=== PATIENT | female | born 1960 | race Caucasian/White ===

== ENCOUNTER 2019-03-28 07:27 | Day surgery (SDC) | payer MEDICARE ==
[2019-03-27 15:08] LABS: Absolute Lymphocytes (CBC) 2.4 K/uL (0.7-4.9); Basophils % 1.1 % (0-1.3); Hematocrit 41.1 % (36.0-45.0); Lymphocytes % 36.6 % (15.3-44.8); MPV 9.2 fL (7.6-11.3); RBC Red Blood Cell Count 4.24 M/uL (3.86-4.86)
--- NOTE | 2019-03-27 15:22 | RAD REPORT ---
EXAM DESCRIPTION: RAD - Chest Pa And Lat (2 Views) - 03/27/2019 3:04 pm CLINICAL HISTORY: preop, pending cholecystectomy COMPARISON: January 04 TECHNIQUE: PA and lateral views of the chest were obtained. FINDINGS: The lungs are clear. Interstitial pattern matches comparison. Heart size is normal and ce ntral vasculature is within normal limits. No pleural effusion or pneumothorax seen. No acute bony finding noted. No aortic abnormality. IMPRESSION: No acute cardiopulmonary process. No significant interval change.
[2019-03-27 15:30] LABS: Potassium 4.5 mmol/L (3.5-5.1)
[2019-03-27 15:45] LABS: Bilirubin Direct 0.2 mg/dL (0-0.2); Bilirubin Total 0.5 mg/dL (0.2-1.0); Protein, Total 7.6 g/dL (6.4-8.2)
[2019-03-28] MEDS ORDERED: SUCCINYLCHOLINE 20 MG/ML (10 ML) IV ONE (07:30)
[2019-03-28] MEDS ORDERED: Ringers Lactate 1,000 ML IV ONE ×2 (07:34→08:58)
[2019-03-28] MEDS ORDERED: CEFOXITIN/SWI 1gm 1 GM/10 ML SYR ONE (07:41)
[2019-03-28] MEDS ORDERED: PROPOFOL 200 MG/20 ML VIAL IV ONE (07:45)
[2019-03-28] MEDS ORDERED: FENTANYL CITR 250 MCG/5 ML ONE (07:46)
[2019-03-28] MEDS ORDERED: MIDAZOLAM HCL 2 MG/2 ML INJ ONE (07:46)
[2019-03-28] MEDS ORDERED: LIDOCAINE 2% MPF 5 ML VIAL ONE (07:46)
[2019-03-28] MEDS ORDERED: GLYCOPYRROLATE 0.2 MG/ML SYR ONE (07:46)
[2019-03-28] MEDS ORDERED: ONDANSETRON 4 MG/2 ML VIAL ONE (07:49)
[2019-03-28] MEDS ORDERED: ROCURONIUM 50 MG/5 ML VIAL IV ONE (07:51)
--- NOTE | 2019-03-28 09:10 | P.BOP ---
Preoperative diagnosis: symptomatic cholelithiasis, RUQ abd pain Postoperative diagnosis: same Primary procedure: Laparoscopic cholecystectomy [employer] Executive Director: ROCIO FRAIRE (HR COORDINATOR) Estimated blood loss: <10cc Specimen: gb Findings: same Anesthesia: General Complications: None Transferred to: Recovery Room Condition: Good
[2019-03-28 09:56] VITALS: TEMP 97.6; O2SAT 100
[2019-03-28] MEDS ORDERED: CODEINE 30MG/APAP 300MG TAB ONE (10:07)
[2019-03-28 10:30] VITALS: BP 111/75
--- NOTE | 2019-03-28 20:44 | OP ---
Date of Procedure: 03/28/2019 Surgeon: Jacky Sullivan MD Warehouse Distribution Specialist: Asha Tony. Preoperative Diagnoses: Symptomatic cholelithiasis, right upper quadrant abdominal pain. Postoperative Diagnoses: Symptomatic cholelithiasis, right upper quadrant abdominal pain. Procedure: Laparoscopic cholecystectomy. Estimated Blood Loss: Less than 10 mL. Specimen: Gallbladder. Anesthesia: General plus local. Indications: This is the case of a 58-year-old patient, who comes to us with the above diagnosis. F pamela explained the benefits, alternatives, and risks of laparoscopic, possible open cholecystectomy, which include, but not limited to infection, bleeding, damage to adjacent structures, anesthesia comp lications, choledocholithiasis, bile leak, pancreatitis, SC, and even . She also understand thi s may not relieve any symptoms. She might need more than one surgical intervention. She understood, signed the consent. Description Of Procedure: Patient was brought to the operating room, placed in supine position. Ane sthesia was given without complication. Abdominal area was prepped and draped in usual sterile fashi on. Marcaine 0.5% was injected for local anesthetic, followed by sharp incision of the skin in the i nfraumbilical region. Incision was carried down to fascia, which was opened under direct vision. Pe ritoneum was encountered, opened under direct vision. Vicryl #1 placed inside the fascia. Telma tr ocar was carefully introduced and no bleeding was obtained. I placed 3 more trocars, 5 mm each one o f them, in the right upper quadrant under direct visualization. The gallbladder looks distended full of tiny stones like sludge, very thick viscous. We put a needle trying to decompress the gallbladde r, although we got some bile out, it was mainly a thick thick sludge that does not even go through th e needle. So we put a grasper in that area, removed the needle under direct visualization, put anoth er grasper in the fundus of the gallbladder, retracted the gallbladder in the inferolateral fashion e xposing the triangle of Calot, obtaining critical view of safety. Cystic duct and cystic artery were clearly isolated, freed circumferentially. Connection between those and the gallbladder were clearl y identified. I proceeded to ligate those by using at least 3 clips proximal, 1 clip distal, and lig ation in the middle. Same was done with the cystic artery. No bile leak. No bleeding. The gallbla dder was removed from the liver using Bovie cauterizer and removed from abdominal cavity using EndoCa tch through the umbilical incision. The area was inspected once again. No bile leak. No bleeding. At that moment, I proceeded to remove the trocars under direct vision, deflated the pneumoperitoneum , closed the fascia with #1 Vicryl. Irrigated subcu tissue, closed that with 3-0 chromic and skin wi th skyler. Sponge count and instrument counts were correct. Patient tolerated the procedure well. Patient was sent to recovery in stable condition. RITIKA/JOSE ROBERTO Voice ID: [id number] Report ID: [id number]
--- NOTE | 2019-03-28 20:50 | DS ---
Date of Discharge: 03/28/2019 Diagnoses: Symptomatic cholelithiasis, right upper quadrant abdominal pain. Procedure: Laparoscopic cholecystectomy. Disposition: Home. Activity: As tolerated. No heavy lifting. Followup: Follow up in my office in 1 week. Call for appointment [phone]. Keep area dry for 48 ho urs, then may shower. Keep Steri-Strips intact. Medications: Include Tylenol No. 3 q.4 hours p.r.n. pain, Bactrim DS p.o. b.i.d. RITIKA/JOSE ROBERTO Voice ID: [id number] Report ID: [id number]
== END 2019-03-28 10:45 | disposition home or self-care (01) ==
LOC: OR 07:27
PROVIDERS: ATTEND Surgery
PROC: 0FT44ZZ Resection of Gallbladder, Percutaneous Endoscopic Approach (ICD-10-PCS; principal; 2019-03-28 08:30)
DX: K80.10 Calculus of gallbladder with chronic cholecystitis without obstruction (principal); K21.9 Gastro-esophageal reflux disease without esophagitis; F31.9 Bipolar disorder, unspecified; Z79.82 Long term (current) use of aspirin; Z88.8 Allergy status to other drugs, medicaments and biological substances; Z80.1 Family history of malignant neoplasm of trachea, bronchus and lung; Z82.62 Family history of osteoporosis
CPT/HCPCS: 85025; 80048; 36415; 82150; 80076; 80164; 88304; 83690; 71046; 47562; J2704; J0330; J2250; J3010; J7120 ×2; J2405

== ENCOUNTER 2020-03-22 09:48 | Emergency (ER) | payer MEDICARE ==
--- OUTSIDE RECORDS SUMMARY | 2020-03-22 09:49 | XMS REPORT | Continuity of Care Document ---
:1960 Author Organization [facility] t Address [address] [place] [address] Care Team Providers Name Role Phone Doctor Unassigned, Name Attending Clinician Unavailable Becky Guo MD Attending Clinician Problems This patient has no known problems. Allergies, Adverse Reactions, Alerts This patient has no known allergies or adverse reactions. Medications This patient has no known medications. Procedures This patient has no known procedures. Encounters Start End Encounter Admission Attending Care Care Encounter Source Date/Time Date/Time Type Type Clinicians Facility Department ID 2020-02-25 2020-02-25 Orders Doctor SHARIF [id number] 00:00:00 00:00:00 Only Unassigned, SUSANA [id number] [facility] [id number] 009 2020-01-16 2020-01-16 Orders Doctor SHARIF [id number] 00:00:00 00:00:00 Only UnassignedSUSANA [id number] [facility] [id number] 009 2019-11-12 2019-11-12 Orders Doctor SHARIF [id number] 00:00:00 00:00:00 Only Unassigned, SUSANA [id number] [facility] [id number] 009 2019-11-09 2019-11-09 Telephone PEBBLES Gou [id number] 00:00:00 00:00:00 Matias Eduardo [id number] [facility] [id number] [facility] [id number] [address] [place] 2019-10-29 2019-10-29 Orders Doctor CHANTE [id number] 00:00:00 00:00:00 Only Unassigned, SUSANA [id number] [facility] [id number] 009 2019-10-12 2019-10-12 Orders Doctor CHANTE [id number] 00:00:00 00:00:00 Only Unassigned, SUSANA [id number] [facility] [id number] 009 2019-10-04 2019-10-04 Office PEBBLES Guo [id number] 12:59:10 13:14:10 Visit Matias Eduardo [id number] [facility] [id number] Specialti [id number] [address] [place] Results This patient has no known results.
--- OUTSIDE RECORDS SUMMARY | 2020-03-22 09:49 | XMS REPORT | Summary of Care ---
:1960 Author Organization [facility] - Health Address [address] [place] [address] Care Team Providers Name Role Phone Pcp, Patient Does Not Have A Primary Care Provider +[phone] 0-0000 Encounter Details Date Type Department Care Team Description 01/16/2020 Orders Only [facility] Doctor Unassigned, No [address] [facility] [place] [address] [address] [place] [address] Allergies Active Allergy Reactions Severity Noted Date Comments Haloperidol Lactate Anaphylaxis 10/04/2019 documented as of this encounter (statuses as of 01/22/2020) Medications No known medicationsdocumented as of this encounter (statuses as of 01/22/2020) Active Problems Not on filedocumented as of this encounter (statuses as of 01/22/2020) Social History Tobacco Use Types Packs/Day Years Used Date Never Smoker Smokeless Tobacco: Never Used Sex Assigned at Date Recorded Not on file documented as of this encounter Last Filed Vital Signs Not on filedocumented in this encounter Plan of Treatment Health Maintenance Due Date Last Done Comments HEPATITIS C (HCV) SCREEN 1960 Depression Screening 1970 DTaP,Tdap,and Td Vaccines ( - 1977 Tdap) Breast Cancer Screening 1998 (MAMMOGRAM) PAP SMEAR 12/29/2007 12/28/2004 COLON CANCER SCREENING ANNUAL 2008 FIT/FOBT COLON CANCER SCREENING FIT DNA 2008 EVERY 3 YEARS COLON CANCER SCREENING 2008 SIGMOIDOSCOPY EVERY 5 YEARS COLONOSCOPY 2008 Colorectal Cancer Screening 2008 Zoster Recombinant Vaccine 2008 (SHINGRIX) (1 of 2) INFLUENZA VACCINE (#1) 2020 PNEUMOCOCCAL 0-64 YEARS COMBINED Aged Out No longer eligible based on SERIES patient's age to complete this topic documented as of this encounter Procedures Procedure Name Priority Date/Time Associated Diagnosis Comme nts REFERRAL- Routine 01/16/2020 12:01 AM CDT REQUEST/RESPONSE documented in this encounter Results Not on filedocumented in this encounter Insurance Payer Benefit Plan / Subscriber ID Effective Phone Address T ype Group Dates [facility] [id number] 2019-Sepideh [employer]rish [employer] - MEDICARE nt O MANAGED MEDICARE ADVANTAGE documented as of this encounter
--- OUTSIDE RECORDS SUMMARY | 2020-03-22 09:49 | XMS REPORT | Summary of Care ---
:1960 Author Organization [facility] - Health Address [address] [place] [address] Care Team Providers Name Role Phone Pcp, Patient Does Not Have A Primary Care Provider +[phone] 0-0000 Encounter Details Date Type Department Care Team Description 02/25/2020 Orders Only [facility] Doctor Unassigned, No [address] [facility] [place] [address] [address] [place] [address] Allergies Active Allergy Reactions Severity Noted Date Comments Haloperidol Lactate Anaphylaxis 10/04/2019 documented as of this encounter (statuses as of 03/06/2020) Medications No known medicationsdocumented as of this encounter (statuses as of 03/06/2020) Active Problems Not on filedocumented as of this encounter (statuses as of 03/06/2020) Social History Tobacco Use Types Packs/Day Years [...] Date/Time Associated Diagnosis Comme nts REFERRAL- Routine 02/25/2020 12:01 AM CDT REQUEST/RESPONSE documented in this encounter Results Not on filedocumented in this encounter Insurance Payer Benefit Plan / Subscriber ID Effective Phone Address T ype Group Dates [facility] [id number] 2019-Sepideh Parrish [employer] - MEDICARE nt O MANAGED MEDICARE ADVANTAGE documented as of this encounter
--- NOTE | 2020-03-22 10:57 | RAD REPORT ---
EXAM DESCRIPTION: RAD - Lumbar Spine 3 Views - 03/22/2020 10:40 am CLINICAL HISTORY: Back pain FINDINGS: Khbq-rk-bjubvcgh scoliosis Marked spondylosis L2-3. Osteoporosis. No fracture or dislocation
--- NOTE | 2020-03-22 10:58 | RAD REPORT ---
EXAM DESCRIPTION: RAD - Pelvis - 03/22/2020 10:41 am CLINICAL HISTORY: Pelvic pain FINDINGS: No fracture or dislocation is seen. Moderate osteoarthritis involves the left hip consisting of joint space narrowing and subchondral scl erosis. Mild to moderate osteoarthritis involves the right hip Bones are osteoporotic
[2020-03-22] MEDS ORDERED: TRAMADOL HCL 50 MG TAB ONE (10:59)
--- NOTE | 2020-03-22 10:59 | RAD REPORT ---
EXAM DESCRIPTION: RAD - Femur Left - 03/22/2020 10:41 am CLINICAL HISTORY: Left leg pain FINDINGS: The bones are osteoporotic. No fracture is seen. No bony lesion is displayed.
[2020-03-22] MEDS ORDERED: HYDROCODONE/APAP 5/325 MG TAB ONE (11:23)
--- NOTE | 2020-03-22 11:29 | ER ---
Nurse's Notes [facility] Name: Skye Coe Age: 59 yrs Sex: Female : 1960 Arrival Date: 03/22/2020 Time: 09:50 Bed 8 Private MD: Diagnosis: Sciatica, left side Presentation: 03/22 10:06 Chief complaint: Patient states: left hip pain that radiates down to the left ankle x 4 sv weeks. Has seen her PCP and given a steroid pack but has not improved. Coronavirus screen: Client denies travel out of the [place] in the last 14 days. At this time, the client does not indicate any symptoms associated with coronavirus-19. Ebola Screen: No symptoms or risks identified at this time. Initial Sepsis Screen: Does the patient meet any 2 criteria? HR > 90 bpm. No. Patient's initial sepsis screen is negative. Does the patient have a suspected source of infection? No. Patient's initial sepsis screen is negative. Risk Assessment: Do you want to hurt yourself or someone else? Patient reports no desire to harm self or others. Onset of symptoms was January 2020. 10:06 Method Of Arrival: Ambulatory sv 10:06 Acuity: JAIME 4 sv Historical: - Allergies: 10:07 Haldol; sv - PMHx: 10:07 Bipolar disorder; sv - PSHx: 10:07 Appendectomy; right foot; sv - Immunization history:: Flu vaccine is up to date. - Social history:: Smoking status: Patient denies any tobacco usage or history of. Screenin:00 Abuse screen: Denies threats or abuse. Denies injuries from another. Nutritional zb screening: No deficits noted. Tuberculosis screening: No symptoms or risk factors identified. Fall Risk None identified. No fall in past 12 months (0 pts). Secondary diagnosis (15 points) IV access (20 points). Ambulatory Aid- Crutches/Cane/Walker (15 pts). Gait- Normal/Bed Rest/Wheelchair (0 pts) Mental Status- Oriented to own ability (0 pts). Total Sher Fall Scale indicates Low Risk Score (25-44 pts). Fall prevention measures have been instituted. Side Rails Up X 2 Frequent Obs/Assesments occuring Family Present and informed to notify staff if they need to leave bedside As available Patient and Family Educated on Fall Prevention Program and strategies. Assessment: 10:30 General: Appears in no apparent distress. uncomfortable, Behavior is calm, cooperative, zb appropriate for age. Pain: Complains of pain in left hip. Neuro: Level of Consciousness is awake, alert, obeys commands, Oriented to person, place, time, situation. Cardiovascular: Capillary refill < 3 seconds in bilateral fingers. Respiratory: Airway is patent Respiratory effort is even, unlabored. GI: No signs and/or symptoms were reported involving the gastrointestinal system. : No signs and/or symptoms were reported regarding the genitourinary system. EENT: No signs and/or symptoms were reported regarding the EENT system. Derm: Skin is intact, is healthy with good turgor, Skin is pink, warm \\T\\ dry. Skin temperature is warm. Musculoskeletal: Circulation, motion, and sensation intact. 11:40 Reassessment: Patient appears in no apparent distress at this time. Patient and/or sv family updated on plan of care and expected duration. Pain level reassessed. Patient is alert, oriented x 3, equal unlabored respirations, skin warm/dry/pink. Vital Signs: 10:06 BP 147 / 90; Pulse 95; Resp 16; Temp 97.4; Pulse Ox 98% ; Weight 67.13 kg; Height 5 ft. sv 2 in. (157.48 cm); Pain 7/10; 11:00 BP 140 / 86; Pulse 93; Resp 18; Pulse Ox 99% on R/A; zb 10:06 Body Mass Index 27.07 (67.13 kg, 157.48 cm) sv ED Course: 09:50 Patient arrived in ED. ds1 09:55 Niko Vallejo PA is PHCP. cp 09:55 Charles Hodges MD is Attending Physician. cp 10:02 Shira Everett RN is Primary Nurse. zb 10:07 Triage completed. sv 10:07 Arm band placed on. sv 10:41 XRAY Pelvis In Process Unspecified. EDMS 10:41 XRAY Femur LEFT In Process Unspecified. EDMS 10:41 XRAY Lumbar Spine (3 Views) In Process Unspecified. EDMS 11:00 Patient has correct armband on for positive identification. Bed in low position. Call zb light in reach. Side rails up X 1. patient monitor on. Pulse ox on. NIBP on. 11:13 US Extremity Venous Unilateral Ltd In Process Unspecified. EDMS 11:40 No provider procedures requiring assistance completed. Patient did not have IV access sv during this emergency room visit. Administered Medications: 10:59 Not Given (Patient Refused; pt stated medication "does funny things to her"): traMADol zb 50 mg PO once; RASS on ADMIN: Combtv4, Very Agttd3, Agttd2, Rstlss1, AlertClm0, Drwsy-1, Lt Sdtn-2, Mod Sdtn-3, Dp Sdtn-4, UnArsble-5 11:20 Drug: HYDROcodone-acetaminophen 5 mg-325 mg 1 tabs Route: PO; zb 11:41 Follow up: Response: No adverse reaction; Pain is decreased zb 11:29 Not Given (no feeding tube): HYDROcodone-acetaminophen 5 mg-325 mg 1 tabs Feeding Tube zb once; RASS on ADMIN: Combtv4, Very Agttd3, Agttd2, Rstlss1, AlertClm0, Drwsy-1, Lt Sdtn-2, Mod Sdtn-3, Dp Sdtn-4, UnArsble-5 11:30 Drug: Ibuprofen 800 mg Route: PO; zb 11:40 Follow up: Response: No adverse reaction zb Outcome: 11:28 Discharge ordered by MD. cp 11:40 Discharged to home ambulatory, with her cane sv 11:40 Condition: stable 11:40 Discharge instructions given to patient, Instructed on discharge instructions, follow up and referral plans. no drinking with medication, no driving heavy equipment, medication usage, sciatica stretches Demonstrated understanding of instructions, follow-up care, medications, Prescriptions given X 2. 11:41 Patient left the ED. sv Signatures: Dispatcher [employer] EDJolly Diaz RN RN sv Sanford, Demi ds1 Niko Vallejo PA PA cp Brown, Zipporah, RN RN zb Corrections: (The following items were deleted from the chart) 11:28 11:27 HYDROcodone-acetaminophen 5 mg-325 mg 1 tabs Feeding Tube zb zb
--- NOTE | 2020-03-22 11:29 | RAD REPORT ---
[facility] 11:13 am CLINICAL HISTORY: left leg pain COMPARISON: None. FINDINGS: Left common femoral, superficial femoral, popliteal and posterior tibial veins are compre ssible and demonstrate augmentation. Doppler demonstrates good flow. IMPRESSION: No evidence of deep venous thrombosis involving the left lower extremity.
--- NOTE | 2020-03-22 11:29 | EDPHYS ---
Physician Documentation [facility] Name: Skye Coe Age: 59 yrs Sex: Female : 1960 Arrival Date: 03/22/2020 Time: 09:50 Bed 8 Private MD: ED Physician Charles Hodges HPI: 03/22 10:12 This 59 yrs old Female presents to ER via Ambulatory with complaints of Hip cp Pain, Leg Pain. 10:12 The patient or guardian reports pain. sustained from unknown reason, There is no cp obvious deformity, The patient is able to ambulate with assistance. The patient is able to bear their full body weight. The complaints affect the left hip and left leg. Onset: The symptoms/episode began/occurred 4 week(s) ago. Associated signs and symptoms: Pertinent positives: low back pain. 10:12 Patient reports seeing PCP this week and is currently taking prescribed steroid. cp Historical: - Allergies: 10:07 Haldol; sv - PMHx: 10:07 Bipolar disorder; sv - PSHx: 10:07 Appendectomy; right foot; sv - Immunization history:: Flu vaccine is up to date. - Social history:: Smoking status: Patient denies any tobacco usage or history of. ROS: 10:20 Constitutional: Negative for body aches, chills, fever, poor PO intake. cp 10:20 Eyes: Negative for injury, pain, redness, and discharge. cp 10:20 Cardiovascular: Negative for chest pain, edema, palpitations. 10:20 Respiratory: Negative for cough, shortness of breath, wheezing. 10:20 Abdomen/GI: Negative for abdominal pain, constipation, bowel incontinence. 10:20 Back: Positive for pain at rest, pain with movement, of the lumbar area and left low back, Negative for injury or acute deformity, decreased range of motion. 10:20 : Negative for urinary symptoms, difficulty urinating, bladder incontinence. 10:20 MS/extremity: Positive for pain, of the left leg, Negative for decreased range of motion, deformity, paresthesias. 10:20 Neuro: Negative for altered mental status, headache, numbness, tingling, weakness. 10:20 All other systems are negative. Exam: 10:25 Constitutional: The patient appears in no acute distress, alert, awake, non-toxic, well cp developed, well nourished. 10:25 Head/Face: Normocephalic, atraumatic. cp 10:25 Chest/axilla: Inspection: normal. 10:25 Cardiovascular: Rate: normal, Rhythm: regular. 10:25 Respiratory: the patient does not display signs of respiratory distress, Respirations: normal, no use of accessory muscles, no retractions. 10:25 Abdomen/GI: Inspection: abdomen appears normal, Palpation: abdomen is soft and non-tender, in all quadrants, voluntary guarding, is not appreciated, involuntary guarding, is not appreciated. 10:25 Back: pain, that is moderate, of the lumbar area and left low back, CVA tenderness, is absent. 10:25 Musculoskeletal/extremity: Extremities: grossly normal except: noted in the left upper thigh and posterior left upper leg: pain, tenderness, Perfusion: the extremity is normally perfused throughout, Sensation intact. 10:25 Skin: no rash present. 10:25 Neuro: Orientation: to person, place \\T\\ time. Mentation: is normal, Motor: moves all fours, strength is normal. Vital Signs: 10:06 BP 147 / 90; Pulse 95; Resp 16; Temp 97.4; Pulse Ox 98% ; Weight 67.13 kg; Height 5 ft. sv 2 in. (157.48 cm); Pain 7/10; 11:00 BP 140 / 86; Pulse 93; Resp 18; Pulse Ox 99% on R/A; zb 10:06 Body Mass Index 27.07 (67.13 kg, 157.48 cm) sv MDM: 10:05 Patient medically screened. cp 10:30 Differential diagnosis: intertrochanteric fracture, femoral neck fracture, femoral cp shaft fracture, bursitis, sciatica. 11:27 Data reviewed: vital signs, nurses notes, radiologic studies, plain films. cp 11:27 Counseling: I had a detailed discussion with the patient and/or guardian regarding: the cp historical points, exam findings, and any diagnostic results supporting the discharge/admit diagnosis, radiology results, the need for outpatient follow up, a family practitioner, to return to the emergency department if symptoms worsen or persist or if there are any questions or concerns that arise at home. Response to treatment: the patient's symptoms have mildly improved after treatment, and as a result, I will discharge patient. 03/22 10:07 Order name: XRAY Pelvis cp 03/22 10:07 Order name: XRAY Femur LEFT cp 03/22 10:07 Order name: XRAY Lumbar Spine (3 Views) cp 03/22 10:07 Order name: US Extremity Venous Unilateral Ltd cp Administered Medications: 10:59 Not Given (Patient Refused; pt stated medication "does funny things to her"): traMADol zb 50 mg PO once; RASS on ADMIN: Combtv4, Very Agttd3, Agttd2, Rstlss1, AlertClm0, Drwsy-1, Lt Sdtn-2, Mod Sdtn-3, Dp Sdtn-4, UnArsble-5 11:20 Drug: HYDROcodone-acetaminophen 5 mg-325 mg 1 tabs Route: PO; zb 11:41 Follow up: Response: No adverse reaction; Pain is decreased zb 11:29 Not Given (no feeding tube): HYDROcodone-acetaminophen 5 mg-325 mg 1 tabs Feeding Tube zb once; RASS on ADMIN: Combtv4, Very Agttd3, Agttd2, Rstlss1, AlertClm0, Drwsy-1, Lt Sdtn-2, Mod Sdtn-3, Dp Sdtn-4, UnArsble-5 11:30 Drug: Ibuprofen 800 mg Route: PO; zb 11:40 Follow up: Response: No adverse reaction zb Disposition: 03/23 06:56 Co-signature as Attending Physician, Charles Hodges MD I agree with the assessment and kdr plan of care. Disposition: 03/22/20 11:28 Discharged to Home. Impression: Sciatica, left side. - Condition is Stable. - Discharge Instructions: Sciatica, Back Exercises. - Prescriptions for Cyclobenzaprine 10 mg Oral Tablet - take 1 tablet by ORAL route every 8 hours As needed; 20 tablet. Lidoderm 5 % Topical adhesive patch,medicated - apply 1 patch by TRANSDERMAL route once daily; 1 box. - Medication Reconciliation Form, Thank You Letter, Antibiotic Education, Prescription Opioid Use form. - Follow up: Private Physician; When: 2 - 3 days; Reason: Recheck today's complaints. - Problem is an ongoing problem. - Symptoms have improved. Signatures: Dispatcher [facility] Jolly Meyers RN RN sv Charles Hodges MD MD kdr Page, Corey, PA PA cp Brown, Zipporah RN RN zb Corrections: (The following items were deleted from the chart) 03/22 11:41 11:28 03/22/2020 11:28 Discharged to Home. Impression: Sciatica, left side. Condition sv is Stable. Forms are Medication Reconciliation Form, Thank You Letter, Antibiotic Education, Prescription Opioid Use. Follow up: Private Physician; When: 2 - 3 days; Reason: Recheck today's complaints. Problem is an ongoing problem. Symptoms have improved. cp 03/23 10:16 03/22 10:12 Onset: The symptoms/episode began/occurred 2 week(s) ago, cp cp
[2020-03-22 17:08] VITALS: BP 147/90; TEMP 97.4; O2SAT 98
== END 2020-03-22 11:41 | disposition home or self-care (01) ==
LOC: ER 09:48
DX: M54.32 Sciatica, left side (principal); F31.9 Bipolar disorder, unspecified; Z88.5 Allergy status to narcotic agent
CPT/HCPCS: 72100; 72170; 93971; 99284

== ENCOUNTER 2021-09-25 17:57 | Emergency (ER) | payer OTHER ==
--- OUTSIDE RECORDS SUMMARY | 2021-09-25 17:59 | XMS REPORT | Continuity of Care Document ---
:1960 Author Organization [facility] t Address [address] [place] [address] Care Team Providers Name Role Phone Jayne Jerome Primary Care Physician Doctor Unassigned, Name Attending Clinician Unavailable Armando HAM L Attending Clinician Becky GUO Attending Clinician Unavailable DESAI_AZAR Attending Clinician Unavailable JENNIFER_AZAR Admitting Clinician Unavailable Payers Payer Name Policy Type Policy Number Effective Date Expiration Date S ource Problems Condition Condition Condition Status Onset Resolution Last Treating Co mments Source Name Details Category Date Date Treatment Clinician Date No known No known Disease Unive rs active active ity of problems problems [facility] Allergies, Adverse Reactions, Alerts Allergy Allergy Status Severity Reaction(s) Onset Inactive Treating Comm ents Source Name Type Date Date Clinician HALOPERI DRUG Active Anaphylaxis 2019-0 Uni vers DOL INGREDI 6-04 ity of LACTATE 00:00: [place] 00 [facility] Haloperi Drug Active Anaphylaxis 2019-0 Uni vers dol Allergy 6-04 ity of Lactate 00:00: [place] 00 Medical [place] Social History Social Habit Start Date Stop Date Quantity Comments Source Exposure to 2021-08-30 2021-09-09 Not sure [facility] SARS-CoV-2 (event) 00:00:00 12:02:00 Medica l Branch Tobacco use and 2019-10-04 2019-10-04 Never used [facility] exposure 00:00:00 00:00:00 Medical Branch Sex Ass[birth year] At [birth year] [facility] y of [place] 00:00:00 00:00:00 Medical Branch Smoking Status Start Date Stop Date Source Never smoker [facility] [place] Medications Ordered Filled Start Stop Current Ordering Indication Dosage Frequency Signature Comments Components Source Medication Medication Date Date Medication? Clinician (SIG) Name Name diclofenac Yes 75mg Take 1 Unive rs 75 mg EC 5-13 tablet by ity of tablet 00:00: mouth 2 00 (two) Medical times Branch daily with meals. omeprazole Yes omeprazole U nivers 40 mg 5-11 40 mg ity of capsule 12:12: capsule,[place] layed Medical release Branch TAKE 1 CAPSULE BY MOUTH ONCE DAILY zolpidem 10 Yes zolpidem Un ton mg tablet 5-11 10 mg ity of 12:12: tablet 52 TAKE 1 Medical TABLET BY Branch MOUTH AT BEDTIME NEEDED traMADoL 50 Yes tramadol Un ton mg tablet 5-11 50 mg ity of 12:12: tablet TAKE 1 Medical TABLET BY Branch MOUTH THREE TIMES DAILY NEEDED FOR PAIN nepafenac Yes Ilevro 0.3 Un ton (ILEVRO) 5-11 % eye ity of 0.3 % DrpS 12:12: drops,susp [place] Medical INSTILL 1 Branch DROP INTO LEFT EYE ONCE DAILY acetaminoph Yes acetaminop Univers en-codeine 5-11 hen 300 ity of 300-30 mg 12:12: mg-codeine [place] tablet 52 30 mg Medical tablet Branch TAKE 1 TABLET(S) TWICE A DAY BY ORAL ROUTE FOR 28 DAYS. acetaZOLAMI Yes acetazolam Univers [place] 500 mg 5-11 dav[place] ER 500 ity of capsule 12:12: mg 52 capsule,ex Medical tended Branch release TAKE 1 CAPSULE BY MOUTH TWICE DAILY omeprazole Yes omeprazole U nivers 40 mg 5-11 40 mg ity of capsule 12:12: [place],de [place] Medical release Branch TAKE 1 CAPSULE BY MOUTH ONCE DAILY zolpidem 10 Yes zolpidem Un ton mg tablet 5-11 10 mg ity of 12:12: tablet TAKE 1 Medical TABLET BY Branch MOUTH AT BEDTIME NEEDED traMADoL 50 Yes tramadol Un ton mg tablet 11 50 mg ity of 12:12: tablet [place] 52 TAKE 1 Medical TABLET BY Branch MOUTH THREE TIMES DAILY NEEDED FOR PAIN nepafenac Yes Ilevro 0.3 Un ton (ILEVRO) 5-11 % eye ity of 0.3 % DrpS 12:12: drops,susp [place] 52 ension Medical INSTILL 1 Branch DROP INTO LEFT EYE ONCE DAILY acetaminoph Yes acetaminop Univers en-codeine - hen 300 ity of 300-30 mg 12:12: mg-codeine [place] tablet 52 30 mg Medical tablet Branch TAKE 1 TABLET(S) TWICE A DAY BY ORAL ROUTE FOR 28 DAYS. acetaZOLAMI Yes acetazolam Univers [place] 500 mg 09-09 [place] 500 ity of capsule 12:12: mg [place] 52 capsule,ex Medical tended Branch release TAKE 1 CAPSULE BY MOUTH TWICE DAILY diclofenac Yes 75mg Take 1 Unive rs 75 mg EC 5-11 tablet by ity of tablet 00:00: mouth 2 [place] [address] (two) Medical times [place] daily with meals. diclofenac Yes 75mg Take 1 Unive rs 75 mg EC 5-11 tablet by ity of tablet 00:00: mouth 2 [place] [address] [facility] daily with meals. alendronate Yes 70mg Take 70 mg Univers 70 mg 5-03 by mouth ity of tablet 00:00: weekly. [address] busPIRone 5 Yes 5mg Take 5 mg U nivers mg tablet 5-03 by mouth 2 ity of 00:00: (two) [place] 00 times Medical daily. Branch alendronate Yes 70mg Take 70 mg Univers 70 mg 5-03 by mouth ity of tablet 00:00: weekly. [address] busPIRone 5 0 Yes 5mg Take 5 mg U nivers mg tablet 5-03 by mouth 2 ity of 00:00: (two) [place] [address] times Medical daily. Branch fluticasone Yes 1 SPRAY IN Univers propionate 4-26 EACH ity of 50 00:00: NOSTRIL [place] mcg/actuati 00 NASALLY Medic al on nasal ONCE A DAY Branc h spray fluticasone Yes 1 SPRAY IN Univers propionate 4-26 EACH ity of 50 00:00: NOSTRIL [place] mcg/actuati 00 NASALLY Medic al on nasal ONCE A DAY Branc h spray buPROPion Yes TAKE 1 Univer s 200 mg 12 2-20 TABLET BY ity o f hr tablet 00:00: MOUTH TWICE A Medical DAY FOR 30 Branch DAYS buPROPion Yes TAKE 1 Univer s 200 mg 12 2-20 TABLET BY ity o f hr tablet 00:00: MOUTH 00 TWICE A Medical DAY FOR 30 Branch DAYS Vital Signs Vital Name Observation Time Observation Value Comments Source Diastolic blood 2021-09-09 17:21:00 87 mm[Hg] [facility] Heart rate 2021-09-09 17:21:00 93 /min [facility] Body height 2021-09-09 17:21:00 157.5 cm [facility] Body weight 2021-09-09 17:21:00 67.586 kg [facility] BMI 2021-09-09 17:21:00 27.25 kg/m2 [facility] Systolic blood 2021-09-09 17:21:00 132 mm[Hg] [facility] Procedures Procedure Date / Time Performed Performing Clinician [facility] e EXTERNAL PROVIDER 2021-09-19 05:01:00 Doctor Unassmendel, No Univ [facility] RECORDS Name [facility] Encounters Start End Encounter Admission Attending Care Care Encounter Source Date/Time Date/Time Type Type Clinicians Facility Department ID 2021-09-19 2021-09-19 Orders Doctor CHANTE [id number] Univers 00:00:00 00:00:00 Only Unassigned, SUSANA [id number] ity of [place] [facility] [id number] [place] as [phone] [place] [address] Branch 2021-09-09 2021-09-09 Office PEBBLES Guo [id number] Univers 14:15:00 14:15:00 [facility] [id number] it y of [place] [id number] [place] as YAMIL?BLEA [phone] Ak joleen [address] MEDICAL OFFICE BUILDING 2021-09-09 2021-09-09 Outpatient R ARMANDO [facility] [id number] Univers 14:15:00 14:08:20 EMMETT sanchez [facility] 2021-05-28 2021-05-28 Outpatient DESAI_DARIUS [facility] [id number] [place] 09:08:00 09:08:00 H da [facility] Outre h Program 2020-02-25 2020-02-25 Orders Doctor SHARIF [id number] 00:00:00 00:00:00 Only Unassigned, SUSANA [id number] [place] [facility] [id number] [id number] 2020-01-16 2020-01-16 Orders Doctor SHARIF [id number] 00:00:00 00:00:00 Only Unassigned, SUSANA [id number] [place] [facility] [id number] [id number] [id number] 2019-11-12 2019-11-12 Orders Doctor CHANTE [id number] 00:00:00 00:00:00 Only Unassigned, SUSANA [id number] [place] [facility] [id number] [id number] 2019-11-09 2019-11-09 Telephone Armando [facility] [id number] 00:00:00 00:00:00 [facility] [id number] Surgical [id number] Specialti [phone] [address] 2019-10-29 2019-10-29 Orders Doctor CHANTE [id number] 00:00:00 00:00:00 Only Unassigned, SUSANA [id number] [place] [facility] [id number] [id number] 2019-10-12 2019-10-12 Orders Doctor CHANTE [id number] 00:00:00 00:00:00 Only Unassigned, SUSANA [id number] [place] [facility] [id number] [id number] 2019-10-04 2019-10-04 Office Armando [facility] [id number] 12:59:10 13:14:10 Visit [facility] [id number] Surgical [id number] Specialti [phone] [address] Results This patient has no known results.
--- NOTE | 2021-09-25 18:46 | RAD REPORT ---
EXAM DESCRIPTION: RAD - Hand Left 3 View - 09/25/2021 6:40 pm CLINICAL HISTORY: SMASH INJURY COMPARISON: Hand Left 3 View dated 09/17/2019 FINDINGS/IMPRESSION: Comminuted fracture of the fourth distal phalangeal tuft. No dislocation. 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
[2021-09-25] MEDS ORDERED: HYDROCODONE/APAP 7.5/325 MG TAB ONE (20:16)
[2021-09-25] MEDS ORDERED: LIDOCAINE 1% MPF 5 ML VIAL ONE (20:18)
[2021-09-25] MEDS ORDERED: BUPIVACAINE 0.25% PF 10 ML VIAL ONE (20:21)
--- NOTE | 2021-09-25 21:25 | ER ---
Nurse's Notes [facility] Name: Skye Coe Age: 60 yrs Sex: Female : 1960 Arrival Date: 09/25/2021 Time: 17:58 Bed 14 Private MD: Antwon Jerome E Diagnosis: Displaced fracture of distal phalanx of left ring finger, initial encounter for open fracture Presentation: 09/25 18:01 Chief complaint: Patient states: left 4th digit fingernail avulsion, nailbed avulsed. iw Coronavirus screen: At this time, the client does not indicate any symptoms associated with coronavirus-19. Ebola Screen: Patient negative for fever greater than or equal to 101.5 degrees Fahrenheit, and additional compatible Ebola Virus Disease symptoms Patient denies exposure to infectious person. Patient denies travel to an Ebola-affected area in the 21 days before illness onset. No symptoms or risks identified at this time. 18:01 Method Of Arrival: Wheelchair iw 18:03 Initial Sepsis Screen: Does the patient meet any 2 criteria? No. Patient's initial sepsis screen is negative. Does the patient have a suspected source of infection? No. Patient's initial sepsis screen is negative. Risk Assessment: Do you want to hurt yourself or someone else? Patient reports no desire to harm self or others. Onset of symptoms was September 25, 2021. 18:03 Acuity: JAIME 3 Triage Assessment: 18:29 General: Appears uncomfortable, Behavior is cooperative. Pain: Complains of pain in jh6 palmar aspect of distal phalanx of left ring finger and left ring fingernail Pain currently is 9 out of 10 on a pain scale. Quality of pain is described as throbbing, Pain began suddenly, Is continuous. Musculoskeletal: Range of motion: limited in DIP of left ring finger. Injury Description: Deformity sustained to dorsal aspect of distal phalanx of left ring finger, palmar aspect of distal phalanx of left ring finger and left ring fingernail Laceration. Historical: - Allergies: 18:03 Haldol; iw - PMHx: 18:03 Bipolar disorder; iw - Social history:: Smoking status: Patient reports the use of cigarette tobacco products. Screenin:28 Abuse screen: Denies threats or abuse. Denies injuries from another. Nutritional 6 screening: No deficits noted. Tuberculosis screening: No symptoms or risk factors identified. Fall Risk None identified. Assessment: 18:30 General: Appears uncomfortable, Behavior is calm, cooperative. Pain: Complains of pain jh6 in left ring fingernail Pain currently is 9 out of 10 on a pain scale. Quality of pain is described as throbbing. Vital Signs: 18:27 BP 144 / 78; Pulse 97; Resp 17; Temp 98.0; Pulse Ox 100% ; Height 5 ft. 2 in. (157.48 jh6 cm); Pain 10/10; ED Course: 17:58 Patient arrived in ED. am2 17:59 Antwon Jerome MD is Private Physician. am2 18:03 Triage completed. iw 18:09 Niko Vallejo PA is PHCP. cp 18:09 Edwardo Currie MD is Attending Physician. cp 18:27 Adrienne Moran RN is Primary Nurse. jh6 18:28 X-ray(s) taken. jh6 18:30 Call light in reach. Side rails up X 1. jh6 18:42 XRAY Hand LEFT 3 View In Process Unspecified. EDMS 21:18 Leeroy Arora MD is Referral Physician. cp 21:26 Jj Terry MD is Attending Physician. 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 Exp: ke1 07/17/2022. Lot #: [id number]. } Route: IM; Site: right deltoid; 22:00 Drug: Ancef (cefazolin) 1 grams Route: IM; Site: right deltoid; ke1 Outcome: 21:24 Discharge ordered by MD. cp 22:36 Patient left the ED. ke1 Signatures: Dispatcher [employer] EDMS Charito Mercedes RN RN Niko Solis PA PA cp Moreno, Amanda am2 Adrienne Moran, RN RN jh6 Jag Benson, RN RN ke1
--- NOTE | 2021-09-25 21:25 | EDPHYS ---
Physician Documentation [facility] Name: Skye Coe Age: 60 yrs Sex: Female : 1960 Arrival Date: 09/25/2021 Time: 17:58 Bed 14 Private MD: Antwon Jerome E ED Physician Jj Terry HPI: 09/25 19:00 This 60 yrs old Female presents to ER via Wheelchair with complaints of Finger Injury. cp 19:00 The patient or guardian reports injury, pain. The complaints affect the distal phalanx cp left fourth finger. 19:00 Context: The problem was sustained at home, resulted from a crush injury, heavy picture cp frame. Onset: The symptoms/episode began/occurred just prior to arrival. 19:00 Associated signs and symptoms: Pertinent positives: avulsion of nail of left fourth cp finger, Pertinent negatives: cyanosis distally, numbness distally. Historical: - Allergies: 18:03 Haldol; iw - PMHx: 18:03 Bipolar disorder; iw - Social history:: Smoking status: Patient reports the use of cigarette tobacco products. ROS: 19:10 MS/extremity: Positive for injury or acute deformity, pain, swelling, tenderness, of cp the distal phalanx left fourth finger, Negative for decreased range of motion. 19:10 Constitutional: Negative for fever. cp 19:10 Neck: Negative for pain with movement, pain at rest, stiffness. 19:10 Cardiovascular: Negative for chest pain. 19:10 Respiratory: Negative for cough, shortness of breath, wheezing. 19:10 Abdomen/GI: Negative for abdominal pain, nausea, vomiting, and diarrhea. 19:10 Back: Negative for pain at rest, pain with movement. 19:10 Neuro: Negative for altered mental status, headache, weakness. 19:10 All other systems are negative. Exam: 19:15 Constitutional: The patient appears in no acute distress, alert, awake, non-toxic, well cp developed, well nourished, uncomfortable. 19:15 Head/Face: Normocephalic, atraumatic. cp 19:15 Neck: ROM/movement: is normal, is supple, without pain, no range of motions limitations. 19:15 Chest/axilla: Inspection: normal. 19:15 Cardiovascular: Rate: normal. 19:15 Respiratory: the patient does not display signs of respiratory distress, Respirations: normal, no use of accessory muscles, no retractions, labored breathing, is not present. 19:15 Abdomen/GI: Exam negative for discomfort, distension, guarding, Inspection: abdomen appears normal. 19:15 Back: pain, is absent, ROM is normal. 19:15 Musculoskeletal/extremity: Extremities: noted in the dorsal side distal phalanx left fourth finger: ROM: full active range of motion, in the left fourth finger, Perfusion: the extremity is normally perfused throughout, the distal left fourth finger Sensation intact. Nails: complete avulsion, of the left ring fingernail, nailbed lacerated, mild bleeding noted. Vital Signs: 18:27 BP 144 / 78; Pulse 97; Resp 17; Temp 98.0; Pulse Ox 100% ; Height 5 ft. 2 in. (157.48 jh6 cm); Pain 10/10; Laceration: 21:20 Wound Repair of 2cm ( 0.8in ) subcutaneous laceration to nailbed of left fourth finger. cp Irregularly shaped.. Skin/tissue flap noted.. Distal neuro/vascular/tendon intact. Anesthesia: Digital block administered with 7 mls of Lido/Marcaine. Wound prep: Extensive cleansing by me, Wound irrigation by me. nailbed closed with 4 5-0 Vicryl using interrupted sutures and sterile technique. Dressed with pressure dressing, xeroform. Patient tolerated well. MDM: 18:10 Patient medically screened. cp 20:15 Physician consultation: Leeroy Arora MD was contacted at 20:15, regarding consult, cp patient's condition, inability to repair nailbed, requests wound be closed as best as possible, dressed, pressure dressing, prescribe oral antibiotics and will see patient in clinic next week, 10-01-2021 at 1400 for wound evaluation. 21:24 Data reviewed: vital signs, nurses notes, radiologic studies, plain films. cp 21:24 Test interpretation: by ED physician or midlevel provider: plain radiologic studies. cp Counseling: I had a detailed discussion with the patient and/or guardian regarding: the historical points, exam findings, and any diagnostic results supporting the discharge/admit diagnosis, radiology results, the need for outpatient follow up, for definitive care, a hand specialist, to return to the emergency department if symptoms worsen or persist or if there are any questions or concerns that arise at home. Response to treatment: Pain improved. Wound dressed as noted. Patient instructed on plan of care going forward and how to perform daily dressing changes. Patient instructed on need for outpatient f/u with DR Arora. Patient acknowledged understanding. Will discharge to home for continued monitoring. 09/25 18:17 Order name: XRAY Hand LEFT 3 View; Complete Time: 18:54 cp 09/25 19:05 Order name: Dressing - Wound; Complete Time: 22:20 cp 09/25 19:05 Order name: Gloves, Sterile; Complete Time: 22:20 cp 09/25 19:05 Order name: Setup Suture Tray; Complete Time: 22:20 cp Administered Medications: 20:30 Drug: Hydrocodone-Acetaminophen (7.5 mg-325 mg) 1 tabs Route: PO; ke1 21:00 Drug: Lidocaine (1 %) 10 ml {Note: by pa.} Volume: 20 ml; Route: Infiltration; ke1 21:00 Drug: Marcaine (bupivacaine) (0.5 %) 10 ml {Note: by pa.} Volume: 10 ml; Route: ke1 Infiltration; 22:00 Drug: Tetanus-Diphtheria Toxoid Adult 0.5 ml {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 Exp: ke1 07/17/2022. Lot #: [id number]. } Route: IM; Site: right deltoid; 22:00 Drug: Ancef (cefazolin) 1 grams Route: IM; Site: right deltoid; ke1 Disposition Summary: 09/25/21 21:24 Discharge Ordered Location: Home cp Problem: new cp Symptoms: have improved cp Condition: Stable cp Diagnosis - Displaced fracture of distal phalanx of left ring finger, initial encounter for cp open fracture Followup: cp - With: Leeroy Arora MD - When: 09/30/2021 - Reason: Wound Recheck Discharge Instructions: - Discharge Summary Sheet cp - Finger Fracture, Adult cp - Nail Avulsion cp Forms: - Medication Reconciliation Form cp - Thank You Letter cp - Antibiotic Education cp - Prescription Opioid Use cp Prescriptions: - Cephalexin 500 mg Oral Capsule - take 1 capsule by ORAL route every 6 hours for 10 days; 40 capsule; Refills: 0, cp Product Selection Permitted - Ibuprofen 800 mg Oral Tablet - take 1 tablet by ORAL route every 8 hours As needed take with food; 30 tablet; cp Refills: 0, Product Selection Permitted - Tylenol-Codeine #3 300 mg-30 mg Oral - take 2 tablet by ORAL route every 6-8 hours; 20 tablet; Refills: 0, Product cp Selection Permitted Signatures: Dispatcher [employer] Charito Retana RN RN iw Niko Vallejo PA PA cp Hastedt, Jennifer, RN RN jh6 Jag Benson RN RN ke1 Corrections: (The following items were deleted from the chart) 09/26 21:17 21:13 Wound Repair of 2cm ( 0.8in ) subcutaneous laceration to nailbed of left fourth cp finger. Irregularly shaped.. Skin/tissue flap noted.. Distal neuro/vascular/tendon intact. Anesthesia: Digital block administered with 7 mls of Lido/Marcaine. Wound prep: Extensive cleansing by me, Wound irrigation by me. nailbed closed with 4 5-0 Vicryl using interrupted sutures and sterile technique. Dressed with pressure dressing, xeroform. Patient tolerated well. cp
[2021-09-25] MEDS ORDERED: CEFAZOLIN SODIUM 1 GM/VIAL ONE (22:05)
[2021-09-25] MEDS ORDERED: TETANUS & DIPHTHERIA TOX,ADULT 0.5 ML VIAL ONE (22:05)
[2021-09-25 22:52] VITALS: BP 144/78; TEMP 98; O2SAT 100
== END 2021-09-25 22:36 | disposition home or self-care (01) ==
LOC: ER 17:57
PROC: 0JQK0ZZ Repair Left Hand Subcutaneous Tissue and Fascia, Open Approach (ICD-10-PCS; principal; 2021-09-25)
DX: S62.635B Displaced fracture of distal phalanx of left ring finger, initial encounter for open fracture (principal); W23.0XXA Caught, crushed, jammed, or pinched between moving objects, initial encounter; Y92.009 Unspecified place in unspecified non-institutional (private) residence as the place of occurrence of the external cause; Z23 Encounter for immunization; Z88.5 Allergy status to narcotic agent; F17.210 Nicotine dependence, cigarettes, uncomplicated
CPT/HCPCS: 73130; 90471; 90714; 96372; 99283; 12001; J0690

== ENCOUNTER 2023-10-28 10:35 | Emergency (ER) | payer OTHER ==
--- NOTE | 2023-10-28 11:33 | EDPHYS ---
Physician Documentation [facility] Name: Skye Coe Age: 62 yrs Sex: Female : 1960 Arrival Date: 10/28/2023 Time: 10:35 Bed 11 Private MD: ED Physician Edwardo Currie HPI: 10/27 11:30 This 62 yrs old Female presents to ER via Ambulatory with complaints of Eye Swelling, rn Redness of Eye - Itching. 11:30 The patient is experiencing redness, The patient sustained None. caused by an unknown rn mechanism. Onset: The symptoms/episode began/occurred 3 day(s) ago. Aggravated by nothing. Alleviated by nothing. Severity of symptoms: At their worst the symptoms were mild in the emergency department the symptoms are unchanged. The patient has not experienced similar symptoms in the past. Patient reports right upper eyelid with itching and has been rubbing her eye, noticed increased redness surrounding eye since last night and worse today. No injury to eye. Eyeball itself does not hurt. No discharge or drainage. No chemical or splash of eye.. Historical: - Allergies: 11:05 Haldol; hb - PMHx: 11:05 Bipolar disorder; hb - Immunization history:: Adult Immunizations up to date, Client reports having NOT received the Covid vaccine. Last tetanus immunization: up to date. - Infectious Disease History:: Denies. - Social history:: Smoking status: Patient denies any tobacco usage or history of. - Family history:: not pertinent. - Hospitalizations: : No recent hospitalization is reported. ROS: 11:30 Constitutional: Negative for fever, chills, and weight loss, Eyes: Positive for right rn periorbital swelling and rash Neuro: Negative for headache, weakness, numbness, tingling, and seizure, Exam: 11:30 Constitutional: This is a well developed, well nourished patient who is awake, alert, rn and in no acute distress. Head/Face: Normocephalic, atraumatic. Eyes: Right periorbital erythema with mild swelling. Sclera without injection, no conjunctival injection, no masses. Right upper outer eyelid with small papules almost pustules and a grouping. No evidence of corneal involvement. Vital Signs: 11:03 BP 133 / 68; Pulse 97; Resp 18; Temp 97.6; Pulse Ox 97% ; Weight 69.85 kg; Height 5 ft. hb 2 in. ; Pain 3/10; 11:03 Body Mass Index 28.17 (69.85 kg, 157.48 cm) hb 11:03 Pain Scale: Adult hb MDM: 10:45 Patient medically screened. rn 11:30 Differential diagnosis: Periorbital cellulitis, shingles. Data reviewed: vital signs, rn nurses notes, and as a result, I will discharge patient. Counseling: I had a detailed discussion with the patient and/or guardian regarding the historical points, exam findings, and any diagnostic results supporting the discharge/admit diagnosis, the need for outpatient follow up, to return to the emergency department if symptoms worsen or persist or if there are any questions or concerns that arise at home. Special discussion: I discussed with the patient/guardian in detail that at this point there is no indication for admission to the hospital. It is understood, however, that if the symptoms persist or worsen the patient needs to return immediately for re-evaluation. Based on the history and exam findings, there is no indication for further emergent testing or inpatient evaluation. I discussed with the patient/guardian the need to see the opthamologist for further evaluation of the symptoms, I discussed with the patient/guardian the need to see the primary care provider for further evaluation of the symptoms. Administered Medications: No medications were administered Disposition Summary: 10/28/23 11:33 Discharge Ordered Notes: Location: Home rn Problem: new rn Symptoms: have improved rn Condition: Stable rn Diagnosis - Cellulitis of face rn - Zoster without complications rn Followup: rn - With: Private Physician - When: As needed - Reason: Recheck today's complaints, Re-evaluation by your physician Discharge Instructions: - Discharge Summary Sheet rn - Shingles rn - Preseptal Cellulitis, Adult rn Forms: - Medication Reconciliation Form rn - Antibiotic intern brand - Prescription Opioid Use rn - Patient Portal Instructions rn - Leadership Thank You Letter rn Prescriptions: - Acyclovir 800 mg Oral Tablet - take 1 tablet ORAL route 5 times per day for 10 days; 50 tablet; Refills: 0, rn Product Selection Permitted - Bactrim DS 800-160 mg Oral Tablet - take 1 tablet ORAL route every 12 hours for 10 days; 20 tablet; Refills: 0, rn Product Selection Permitted Signatures: Currie, Edwardo, MD MD rn Jensen, Odette, RN RN hb
--- NOTE | 2023-10-28 11:33 | ER ---
Nurse's Notes [facility] Name: Skye Coe Age: 62 yrs Sex: Female : 1960 Arrival Date: 10/28/2023 Time: 10:35 Bed 11 Private MD: Diagnosis: Cellulitis of face;Zoster without complications Presentation: 10/27 11:03 Chief complaint: Patient states: Right eye with redness, swelling, itching, excessive hb tearing x2 days. Coronavirus screen: Vaccine status: Patient reports being unvaccinated. Client denies travel out of the [place] in the last 14 days. Ebola Screen: Patient negative for fever greater than or equal to 101.5 degrees Fahrenheit, and additional compatible Ebola Virus Disease symptoms Patient denies exposure to infectious person. Patient denies travel to an Ebola-affected area in the 21 days before illness onset. Initial Sepsis Screen: Does the patient meet any 2 criteria? No. Patient's initial sepsis screen is negative. Does the patient have a suspected source of infection? No. Patient's initial sepsis screen is negative. Risk Assessment: Do you want to hurt yourself or someone else? Patient reports no desire to harm self or others. Onset of symptoms was October 26, 2023. 11:03 Method Of Arrival: Ambulatory hb 11:03 Acuity: JAIME 4 hb Triage Assessment: 11:05 General: Appears in no apparent distress. Behavior is calm, cooperative. Pain: hb Complains of pain in right eye Pain does not radiate. Pain currently is 3 out of 10 on a pain scale. Quality of pain is described as burning, itching Pain began 2-3 days ago. Is continuous. EENT: Eyes are tearing on right eye. Historical: - Allergies: 11:05 Haldol; hb - PMHx: 11:05 Bipolar disorder; hb - Immunization history:: Adult Immunizations up to date, Client reports having NOT received the Covid vaccine. Last tetanus immunization: up to date. - Infectious Disease History:: Denies. - Social history:: Smoking status: Patient denies any tobacco usage or history of. - Family history:: not pertinent. - Hospitalizations: : No recent hospitalization is reported. Screenin:[facility] ED Fall Risk Assessment (Adult) History of falling in the last 3 months, hb including since admission No falls in past 3 months (0 pts) Confusion or Disorientation No (0 pts) Intoxicated or Sedated No (0 pts) Impaired Gait No (0 pts) Mobility Assist Device Used No (0 pt) Altered Elimination No (0 pt) Score/Fall Risk Level 0 - 2 = Low Risk Oriented to surroundings, Maintained a safe environment, Educated pt \T\ family on fall prevention, incl call for assistance when getting out of bed. Abuse screen: Denies threats or abuse. Denies injuries from another. Nutritional screening: No deficits noted. Tuberculosis screening: No symptoms or risk factors identified. Assessment: 11:42 General: Appears in no apparent distress. Behavior is calm, cooperative. Pain: Pain hb currently is 3 out of 10 on a pain scale. Neuro: Level of Consciousness is awake, alert, obeys commands, Oriented to person, place, time, situation. Cardiovascular: Patient's skin is warm and dry. Respiratory: Respiratory effort is even, unlabored, Respiratory pattern is regular, symmetrical. Derm: right periorbital swelling and redness. Vital Signs: 11:03 BP 133 / 68; Pulse 97; Resp 18; Temp 97.6; Pulse Ox 97% ; Weight 69.85 kg; Height 5 ft. hb 2 in. ; Pain 3/10; 11:03 Body Mass Index 28.17 (69.85 kg, 157.48 cm) hb 11:03 Pain Scale: Adult hb ED Course: 10:39 Patient arrived in ED. ra3 10:45 Edwardo Currie MD is Attending Physician. rn 11:05 Triage completed. hb 11:05 Arm band placed on right wrist. hb 11:41 Odette Jensen, RN is Primary Nurse. hb 11:44 Patient has correct armband on for positive identification. Provided Education on: hb medications. 11:45 No provider procedures requiring assistance completed. Patient did not have IV access hb during this emergency room visit. Administered Medications: No medications were administered Medication: 11:42 VIS not applicable for this client. hb Outcome: 11:33 Discharge ordered by . rn 11:41 Discharged to home ambulatory, hb 11:41 Condition: stable 11:41 Discharge instructions given to patient, Instructed on discharge instructions, follow up and referral plans. medication usage, Demonstrated understanding of instructions, follow-up care, medications, Prescriptions given X 2, 11:45 Patient left the ED. hb Signatures: Edwardo Currie MD MD rn Baxter, Heather, RN RN Jaimie Adams 3
[2023-10-28 11:59] VITALS: BP 133/68; TEMP 97.6; O2SAT 97
== END 2023-10-28 11:45 | disposition home or self-care (01) ==
LOC: ER 10:35
DX: L03.211 Cellulitis of face (principal); B02.9 Zoster without complications; Z88.5 Allergy status to narcotic agent
CPT/HCPCS: 99283